=== PATIENT | female | born 2000 | race Caucasian/White ===

== ENCOUNTER → 2025-10-25 | Outpatient (CLI) | payer BC, SELFPAY ==
--- NOTE | 2025-10-25 16:32 | CT_ITS ---
PROCEDURE: SINUS/FACIAL BONE 10/25/2025 REASON FOR EXAM: SINUSITIS TECHNIQUE: Procedure Code: CTSI Modality: CT Procedure: SINUS/FACIAL BONE Coronal and Sagittal reconstruction series were provided. One or more dose reduction techniques were used (e.g., Automated exposure control, adjustment of the mA and/or kV according to patient size, use of iterative reconstruction technique). RADIATION DOSE SUMMARY: CTDI Vol 22.63 mGy DLP :515.6mGycm COMPARISON: none FINDINGS: Clear sphenoid and frontal sinuses as well as the maxillary antra and ethmoidal air cells. Hypopneumatized frontal sinus. Uncinate Processes: No deviation or bulla formation Osteomeatal units: patent. Obliterated by related mucosal thickening. Sphenoethmoidal recesses: Patent Fovea Ethmoidalis: Normal position. Fovea ethmoidalis and cribriform plate are not low lying Nasal Septum: mildly bowed convex to the left side. Turbinates: Thickening of the mucosa covering the right inferior turbinate. Nasopharynx: no obvious abnormalities. Mastoid air cells and middle ear clefts: Unremarkable with Hypopneumatized mastoid air cells. Facial Bones and mandible: Unremarkable. CT/Sinus/Facial Bone IMPRESSION: No obvious sinusitis. Mildly bowed nasal septum convex to the left side. Prominent right inferior turbinate. Reading Location: [place] [id number]
== END | disposition home or self-care (01) ==
PROVIDERS: Referring Provider Otolaryngology; Visit Provider Otolaryngology
DX: J32.8 Other chronic sinusitis (principal)
CPT/HCPCS: 70486